=== PATIENT | female | born 1965 | race Hispanic/Latino ===

== ENCOUNTER 2017-05-31 22:47 | Emergency (ER) | payer BC, OTHER ==
[2017-06-01 00:44] LABS: BASOPHILS % (AUTO) 0.7 % (0.0-5.0); EOSINOPHILS % (AUTO) 0.6 % (0.0-8.0); HEMATOCRIT 36.6 % (36-48); LYMPHOCYTES % (AUTO) 15.2 % (21.0-51.0); MEAN CORPUSCULAR HEMOGLOBIN 30.5 pg (27.0-33.0); MEAN CORPUSCULAR VOLUME 89.6 fL (79-99); MONOCYTES % (AUTO) 4.1 % (3.0-13.0); NEUTROPHILS % (AUTO) 79.4 % (40.0-77.0); NUCLEATED RED BLOOD CELLS 0.1 % (0.0-0.19); PLATELET COUNT (AUTO) 148 K/uL (130-400); RED BLOOD CELL COUNT(AUTO) 4.08 MIL/uL (4.00-5.50); RED CELL DISTRIBUTION WIDTH 13.4 % (11.0-15.5); WHITE BLOOD COUNT (AUTO) 10.6 K/uL (4.8-10.8)
[2017-06-01 00:48] LABS: APPEARANCE,URINE Cloudy (CLEAR); BILIRUBIN,URINE Small (NEGATIVE); COLOR,URINE Dark Yellow (YELLOW); GLUCOSE, URINE (UA) Negative (NEGATIVE); KETONES,URINE Trace mg/dL (NEGATIVE); LEUKOCYTE ESTERASE ,URINE Trace (NEGATIVE); NITRATE,URINE Negative (NEGATIVE); OCCULT BLOOD,URINE Negative (NEGATIVE); PH,URINE 5.5 (5.0-8.0); PROTEIN,URINE POS 1+ (NEGATIVE)
[2017-06-01 00:53] LABS: CREATININE 0.6 mg/dL (0.5-1.5); POTASSIUM 4.1 mmol/L (3.5-5.1)
[2017-06-01 01:01] LABS: ALBUMIN 3.4 g/dL (3.5-5.0); TOTAL PROTEIN, SERUM 7.3 g/dL (6.0-8.3)
[2017-06-01 01:09] LABS: BACTERIA,URINE Few /HPF (None Seen); MUCUS,URINE Few LPF (None Seen); RBC,URINE 0-1 /HPF (0-1); SQUAMOUS EPITHELIAL CELL,UR Moderate /LPF (0-2)
[2017-06-01 01:10] LABS: HCG,QUAL RESULT NEGATIVE (NEGATIVE)
[2017-06-01] MEDS ORDERED: LIDOCAINE HCL 2% VISCOUS 15 ML UDCUP ONE (01:31)
[2017-06-01] MEDS ORDERED: MAG HYDROX/AL HYDROX/SIMETH ES 30 ML SUSP UDCUP ONE (01:31)
== END 2017-06-01 03:52 | disposition home or self-care (01) ==
LOC: EDH 22:47
DX: R10.13 Epigastric pain (principal); R11.2 Nausea with vomiting, unspecified; I10 Essential (primary) hypertension; E11.9 Type 2 diabetes mellitus without complications
CPT/HCPCS: 36415; 76705; 80053; 81001; 81025; 83690; 84484; 85025

== ENCOUNTER 2017-07-11 04:41 | Observation (INO) | payer OTHER ==
[~2017-07-11] VITALS: Ht 154.9 cm; Wt 88.8 kg
[2017-07-11] MEDS ORDERED: ONDANSETRON HCL 4 MG/2 ML VIAL ONE (04:44)
[2017-07-11] MEDS ORDERED: MORPHINE SULFATE 4 MG/1ML SYG ONE ×3 (04:44→05:50)
[2017-07-11 05:09] LABS: BASOPHILS % (AUTO) 0.3 % (0.0-5.0); EOSINOPHILS % (AUTO) 0.2 % (0.0-8.0); HEMATOCRIT 41.6 % (36-48); LYMPHOCYTES % (AUTO) 16.4 % (21.0-51.0); MEAN CORPUSCULAR HEMOGLOBIN 30.8 pg (27.0-33.0); MEAN CORPUSCULAR HGB CONC 34.5 g/dL (32.0-36.0); MEAN CORPUSCULAR VOLUME 89.2 fL (79-99); MONOCYTES % (AUTO) 4.7 % (3.0-13.0); NEUTROPHILS % (AUTO) 78.4 % (40.0-77.0); PLATELET COUNT (AUTO) 263 K/uL (130-400); RED BLOOD CELL COUNT(AUTO) 4.66 MIL/uL (4.00-5.50); RED CELL DISTRIBUTION WIDTH 13.3 % (11.0-15.5); WHITE BLOOD COUNT (AUTO) 11.4 K/uL (4.8-10.8)
[2017-07-11 05:18] LABS: CREATININE 0.7 mg/dL (0.5-1.5); POTASSIUM 3.4 mmol/L (3.5-5.1)
[2017-07-11 05:22] LABS: ALBUMIN 3.5 g/dL (3.5-5.0); BILIRUBIN,TOTAL 0.9 mg/dL (0.2-1.0); TOTAL PROTEIN, SERUM 7.7 g/dL (6.0-8.3)
[2017-07-11] MEDS ORDERED: FAMOTIDINE/PF 20 MG/2 ML VIAL IV ONE (05:52)
[2017-07-11] MEDS ORDERED: IOPAMIDOL-370 75 ML VIAL IV ONE (05:59)
[2017-07-11] MEDS ORDERED: LEVOFLOXACIN 750 MG/D5W 150 ML 150 ML ONE (07:15)
[2017-07-11] MEDS ORDERED: SODIUM CHLORIDE 0.9% 1000ML 1,000 ML IV ONE (07:16)
[2017-07-11 08:12] VITALS: BP 141/82
[2017-07-11] MEDS ORDERED: MAG HYDROX/AL HYDROX/SIMETH ES 30 ML SUSP UDCUP PO PRN (08:15)
[2017-07-11] MEDS ORDERED: ACETAMINOPHEN-CODEINE 300/30MG TAB PO PRN ×2 (08:15)
[2017-07-11] MEDS ORDERED: NITROGLYCERIN 0.4 MG SL TAB SL PRN (08:15)
[2017-07-11] MEDS ORDERED: ACETAMINOPHEN 325 MG TAB PO PRN ×2 (08:15)
[2017-07-11] MEDS ORDERED: MORPHINE SULFATE 2 MG/ML 1ML SYG IV PRN (08:15)
[2017-07-11] MEDS ORDERED: LEVOFLOXACIN 500 MG/D5W 100 ML 100 ML IV SCH (08:15)
[2017-07-11] MEDS ORDERED: LACTULOSE 20 GM/30 ML UDCUP PO PRN (08:15)
[2017-07-11] MEDS ORDERED: HYDRALAZINE HCL 20 MG/ML VIAL IV PRN (08:15)
[2017-07-11] MEDS ORDERED: GUAIFENESIN-DM 200/20 MG 10 ML PO PRN (08:15)
[2017-07-11] MEDS ORDERED: MORPHINE SULFATE 4 MG/1ML SYG IV PRN (08:15)
[2017-07-11] MEDS: FAMOTIDINE/PF 20 MG/2 ML VIAL IV SCH ×2 (08:36→21:38)
[2017-07-11] MEDS ORDERED: DICY10CA13 PO (08:49)
[2017-07-11] MEDS ORDERED: METF850T2 PO (08:49)
[2017-07-11] MEDS ORDERED: ONDA4TAB9 PO (08:49)
[2017-07-11] MEDS ORDERED: LOSA50TA37 PO (08:49)
[2017-07-11] MEDS ORDERED: POTASSIUM CHLORIDE 20MEQ/100ML 100 ML IV PRN (09:00)
[2017-07-11] MEDS ORDERED: POTASSIUM CHLORIDE 10% ELIXIR 20 MEQ/15 ML UDCUP PO PRN (09:00)
[2017-07-11] MEDS ORDERED: POTASSIUM CHLORIDE 20 MEQ ERTAB PO PRN (09:00)
[2017-07-11] MEDS ORDERED: LIDOCAINE HCL-MPF 1% 2ML VIAL IVP PRN (09:00)
[2017-07-11] MEDS: DICYCLOMINE HCL 20 MG TAB PO SCH ×4 (09:56→21:39)
[2017-07-11] MEDS: SIMETHICONE 80 MG TAB.CHEW PO SCH ×4 (09:57→21:39)
[2017-07-11] MEDS: SODIUM CHLORIDE 0.9% 1000ML 1,000 ML IV SCH ×2 (10:02→22:27)
[2017-07-11 11:12] VITALS: BP 137/79
[2017-07-11] MEDS: METOCLOPRAMIDE 10 MG/2 ML VIAL IVP SCH ×2 (11:30→17:00)
[2017-07-11] MEDS: INSULIN HUMULIN R 100 UNIT/ML 3ML SQ SCH ×3 (11:30→21:00)
[2017-07-11] MEDS: METRONIDAZOLE 500MG/100ML BAG 100 ML IV SCH ×3 (13:03→23:42)
[2017-07-11] MEDS: ONDANSETRON HCL 4 MG/2 ML VIAL IV PRN (13:03)
[2017-07-11] MEDS: KETOROLAC TROMETHAMINE 15MG/ML IV PRN (13:12)
[2017-07-11 16:03] VITALS: BP 117/77
[2017-07-11 20:00] VITALS: BP 103/64
[2017-07-11] MEDS: ENOXAPARIN SODIUM 40 MG/0.4 ML SYRINGE SQ SCH (21:43)
[2017-07-12] VITALS (7 sets, daily range): BP systolic 108–128; BP diastolic 65–89
[2017-07-12 03:44] LABS: HEMATOCRIT 35.3 % (36-48); MEAN CORPUSCULAR HEMOGLOBIN 31.8 pg (27.0-33.0); MEAN CORPUSCULAR HGB CONC 35.4 g/dL (32.0-36.0); MEAN CORPUSCULAR VOLUME 89.7 fL (79-99); PLATELET COUNT (AUTO) 203 K/uL (130-400); RED BLOOD CELL COUNT(AUTO) 3.93 MIL/uL (4.00-5.50); RED CELL DISTRIBUTION WIDTH 13.2 % (11.0-15.5); WHITE BLOOD COUNT (AUTO) 8.1 K/uL (4.8-10.8)
[2017-07-12 03:57] LABS: ALBUMIN 2.8 g/dL (3.5-5.0); BILIRUBIN,TOTAL 1.2 mg/dL (0.2-1.0); CREATININE 0.7 mg/dL (0.5-1.5); POTASSIUM 3.5 mmol/L (3.5-5.1); TOTAL PROTEIN, SERUM 6.3 g/dL (6.0-8.3)
[2017-07-12] MEDS: INSULIN HUMULIN R 100 UNIT/ML 3ML SQ SCH ×4 (07:30→21:00)
[2017-07-12] MEDS: METOCLOPRAMIDE 10 MG/2 ML VIAL IVP SCH ×3 (07:30→16:41)
[2017-07-12] MEDS: METRONIDAZOLE 500MG/100ML BAG 100 ML IV SCH ×2 (08:55→16:44)
[2017-07-12] MEDS: FAMOTIDINE/PF 20 MG/2 ML VIAL IV SCH ×2 (08:55→08:56)
[2017-07-12] MEDS: KETOROLAC TROMETHAMINE 15MG/ML IV PRN (08:56)
[2017-07-12] MEDS: SIMETHICONE 80 MG TAB.CHEW PO SCH ×4 (09:00→20:58)
[2017-07-12] MEDS: ENOXAPARIN SODIUM 40 MG/0.4 ML SYRINGE SQ SCH (09:00)
[2017-07-12] MEDS: DICYCLOMINE HCL 20 MG TAB PO SCH ×4 (09:00→20:58)
[2017-07-12] MEDS: SODIUM CHLORIDE 0.9% 1000ML 1,000 ML IV SCH ×2 (13:04→22:05)
[2017-07-12] MEDS: ONDANSETRON HCL 4 MG/2 ML VIAL IV PRN (17:09)
[2017-07-13] MEDS: METRONIDAZOLE 500MG/100ML BAG 100 ML IV SCH ×2 (01:00→08:47)
[2017-07-13 04:08] VITALS: BP 111/65
[2017-07-13] MEDS: METOCLOPRAMIDE 10 MG/2 ML VIAL IVP SCH ×2 (06:10→11:19)
[2017-07-13] MEDS: INSULIN HUMULIN R 100 UNIT/ML 3ML SQ SCH ×2 (06:14→11:29)
[2017-07-13 07:48] VITALS: BP 116/69
[2017-07-13] MEDS: FAMOTIDINE/PF 20 MG/2 ML VIAL IV SCH (08:47)
[2017-07-13] MEDS: SIMETHICONE 80 MG TAB.CHEW PO SCH (08:47)
[2017-07-13] MEDS: ONDANSETRON HCL 4 MG/2 ML VIAL IV PRN (08:47)
[2017-07-13] MEDS: DICYCLOMINE HCL 20 MG TAB PO SCH (08:49)
[2017-07-13] MEDS ORDERED: LEVOFLOXACIN 500 MG/D5W 100 ML 100 ML IV SCH (09:00)
[2017-07-13] MEDS: ENOXAPARIN SODIUM 40 MG/0.4 ML SYRINGE SQ SCH (09:00)
[2017-07-13 11:30] VITALS: BP 108/74
== END 2017-07-13 12:50 | disposition home or self-care (01) ==
LOC: EDH 04:41 → EDHIP 07:12 → 3AH 07:56
PROVIDERS: ADMIT Internal Medicine; ATTEND Internal Medicine
DX: K57.32 Diverticulitis of large intestine without perforation or abscess without bleeding (principal); R10.30 Lower abdominal pain, unspecified; E11.9 Type 2 diabetes mellitus without complications; E78.5 Hyperlipidemia, unspecified; I10 Essential (primary) hypertension; K59.00 Constipation, unspecified; E66.01 Morbid (severe) obesity due to excess calories
CPT/HCPCS: 36415 ×3; 74177; 80053 ×2; 82150; 82550; 82948 ×10; 83690; 84132; 84484; 84703; 85025; 85027; 87507; 93005; 96361 ×3; 96365; 96366 ×2; 96372; 96375 ×2; 96376 ×2; 99285; G0378 ×54; J1650; J1885 ×2; J1956 ×2; J2270 ×3; J2405 ×4; J3480; J3490 ×12; J7030 ×3; Q9967

== ENCOUNTER 2017-08-26 16:15 | Inpatient (IN) | payer OTHER ==
[~2017-08-26] VITALS: Ht 154.9 cm; Wt 88.9 kg
[~2017-08-26 16:15] MED LIST: DICY10CA13 PO; LOSA50TA37 PO; METF850T2 PO; ONDA4TAB9 PO
[2017-08-26 16:55] LABS: BASOPHILS % (AUTO) 0.6 % (0.0-5.0); EOSINOPHILS % (AUTO) 1.1 % (0.0-8.0); HEMATOCRIT 40.6 % (36-48); LYMPHOCYTES % (AUTO) 26.7 % (21.0-51.0); MEAN CORPUSCULAR HEMOGLOBIN 30.7 pg (27.0-33.0); MEAN CORPUSCULAR HGB CONC 34.4 g/dL (32.0-36.0); MEAN CORPUSCULAR VOLUME 89.3 fL (79-99); MONOCYTES % (AUTO) 6.2 % (3.0-13.0); NEUTROPHILS % (AUTO) 65.4 % (40.0-77.0); PLATELET COUNT (AUTO) 284 K/uL (130-400); RED BLOOD CELL COUNT(AUTO) 4.55 MIL/uL (4.00-5.50); RED CELL DISTRIBUTION WIDTH 13.1 % (11.0-15.5); WHITE BLOOD COUNT (AUTO) 8.2 K/uL (4.8-10.8)
[2017-08-26 17:02] VITALS: BP 118/74
[2017-08-26 17:09] LABS: ALBUMIN 3.8 g/dL (3.5-5.0); BILIRUBIN,TOTAL 0.8 mg/dL (0.2-1.0); CREATININE 0.7 mg/dL (0.5-1.5); POTASSIUM 3.8 mmol/L (3.5-5.1)
[2017-08-27] MEDS ORDERED: DOCU100T PO (09:20)
[2017-08-27] MEDS ORDERED: MIRALAX PO (09:20)
[2017-08-28] MEDS ORDERED: CEFOXITIN SODIUM 2 GM VIAL IVP SCH (06:45)
[2017-08-29] MEDS: SODIUM CHLORIDE 0.9% 1000ML 1,000 ML IV SCH (12:45)
[2017-09-01 17:03] LABS: INR 0.92 (0.85-1.15); PARTIAL THROMBOPLASTIN TIME 25.3 SEC (26.3-35.5); PROTHROMBIN TIME 9.7 SEC (9.6-11.6)
[2017-09-03] VITALS (29 sets, daily range): BP systolic 111–137; BP diastolic 51–87
[2017-09-03] MEDS: SODIUM CHLORIDE 0.9% 1000ML 1,000 ML IV SCH ×3 (10:48→17:34)
[2017-09-03] MEDS: CEFOXITIN SODIUM 2 GM VIAL ONE ×2 (10:48→11:15)
[2017-09-03] MEDS ORDERED: MIDAZOLAM HCL 1 MG/ML 2ML VIAL ONE (11:30)
[2017-09-03] MEDS ORDERED: FENTANYL CITRATE PF 50 MCG/1 ML 2ML VIAL ONE ×4 (11:32→15:47)
[2017-09-03] MEDS ORDERED: PROPOFOL 10 MG/ML 20ML VIAL IV ONE (11:32)
[2017-09-03] MEDS ORDERED: EPHEDRINE SULFATE 50 MG/ML AMPULE ONE (11:55)
[2017-09-03] MEDS ORDERED: BUPIVACAINE/PF 0.5% 30ML VIAL ONE (11:59)
[2017-09-03] MEDS ORDERED: NEOSTIGMINE METHYLSULFATE 1MG/ML IV ONE ×2 (12:50→13:51)
[2017-09-03] MEDS ORDERED: ROCURONIUM BROMIDE 10MG/1ML 5ML VL ONE (12:50)
[2017-09-03] MEDS ORDERED: LIDOCAINE PF 2% 5ML ABBOJECT ONE (12:50)
[2017-09-03] MEDS ORDERED: GLYCOPYRROLATE 0.2 MG/ML 5 ML VIAL ONE ×2 (12:50→13:51)
[2017-09-03] MEDS ORDERED: FENTANYL CITRATE PF 50 MCG/1 ML 5ML AMP IV ONE (13:06)
[2017-09-03] MEDS ORDERED: ONDANSETRON HCL MDV 20ML 2 MG/ML VIAL IVP PRN (14:15)
[2017-09-03] MEDS ORDERED: ACETAMINOPHEN-CODEINE 300/30MG TAB PO PRN (14:15)
[2017-09-03] MEDS ORDERED: KETOROLAC TROMETHAMINE 30MG/ML IM PRN (14:15)
[2017-09-03] MEDS ORDERED: MEPERIDINE-PF 25 MG/ML SYG ONE ×2 (14:34→14:43)
[2017-09-03] MEDS ORDERED: ROPIVACAINE 0.5% 5MG/ML 30ML IJ ONE (14:40)
[2017-09-03] MEDS ORDERED: DEXAMETHASONE SOD PHOSPHATE 10MG/ML 1ML VIAL ONE (14:47)
[2017-09-03] MEDS ORDERED: NALOXONE HCL 0.4 MG/1 ML ML IVP PRN (15:45)
[2017-09-03] MEDS ORDERED: CEFOXITIN SODIUM 1 GM VIAL ONE (16:58)
[2017-09-03] MEDS: LACTATED RINGERS 1000ML 1,000 ML IV SCH (17:18)
[2017-09-03] MEDS: CEFOXITIN SODIUM 1 GM VIAL IVP SCH (17:32)
[2017-09-03] MEDS ORDERED: CEFOXITIN 1GM+NS 100ML 100 ML IV SCH (18:00)
[2017-09-03] MEDS: INSULIN HUMULIN R 100 UNIT/ML 3ML SQ PRN (21:17)
[2017-09-04] MEDS: CEFOXITIN SODIUM 1 GM VIAL IVP SCH (01:03)
[2017-09-04 03:45] VITALS: BP 123/67
[2017-09-04 03:49] LABS: BASOPHILS % (AUTO) 0.1 % (0.0-5.0); HEMATOCRIT 36.3 % (36-48); LYMPHOCYTES % (AUTO) 3.5 % (21.0-51.0); MEAN CORPUSCULAR HEMOGLOBIN 31.5 pg (27.0-33.0); MEAN CORPUSCULAR HGB CONC 35.5 g/dL (32.0-36.0); MEAN CORPUSCULAR VOLUME 88.8 fL (79-99); MONOCYTES % (AUTO) 5.2 % (3.0-13.0); NEUTROPHILS % (AUTO) 91.2 % (40.0-77.0); PLATELET COUNT (AUTO) 214 K/uL (130-400); RED BLOOD CELL COUNT(AUTO) 4.09 MIL/uL (4.00-5.50); RED CELL DISTRIBUTION WIDTH 13.3 % (11.0-15.5); WHITE BLOOD COUNT (AUTO) 13.4 K/uL (4.8-10.8)
[2017-09-04 03:55] LABS: CREATININE 0.8 mg/dL (0.5-1.5); POTASSIUM 4.1 mmol/L (3.5-5.1)
[2017-09-04] MEDS: LACTATED RINGERS 1000ML 1,000 ML IV SCH ×2 (04:10→16:30)
[2017-09-04] MEDS: INSULIN HUMULIN R 100 UNIT/ML 3ML SQ PRN (06:18)
[2017-09-04 08:00] VITALS: BP 129/88
[2017-09-04] MEDS: SODIUM CHLORIDE 0.9% 1000ML 1,000 ML IV SCH (08:45)
[2017-09-04] MEDS: PANTOPRAZOLE SODIUM 40 MG TABLET.DR PO SCH (10:12)
[2017-09-04 12:00] VITALS: BP 116/77
[2017-09-04 16:00] VITALS: BP 130/77
[2017-09-04] MEDS: MEPERIDINE 10MG/ML 50ML PCA 50 ML IV SCH (16:29)
[2017-09-04 19:55] VITALS: BP 104/68
[2017-09-04] MEDS: DOCUSATE SODIUM 100 MG CAP PO SCH (20:41)
[2017-09-04 23:37] VITALS: BP 109/66
[2017-09-05 03:45] VITALS: BP 117/72
[2017-09-05 03:59] LABS: BASOPHILS % (AUTO) 0.2 % (0.0-5.0); EOSINOPHILS % (AUTO) 0.1 % (0.0-8.0); HEMATOCRIT 32.7 % (36-48); LYMPHOCYTES % (AUTO) 12.9 % (21.0-51.0); MEAN CORPUSCULAR HEMOGLOBIN 30.8 pg (27.0-33.0); MEAN CORPUSCULAR HGB CONC 34.6 g/dL (32.0-36.0); MEAN CORPUSCULAR VOLUME 88.9 fL (79-99); MONOCYTES % (AUTO) 5.8 % (3.0-13.0); PLATELET COUNT (AUTO) 207 K/uL (130-400); RED BLOOD CELL COUNT(AUTO) 3.68 MIL/uL (4.00-5.50); RED CELL DISTRIBUTION WIDTH 13.2 % (11.0-15.5); WHITE BLOOD COUNT (AUTO) 12.5 K/uL (4.8-10.8)
[2017-09-05 04:06] LABS: CREATININE 0.7 mg/dL (0.5-1.5)
[2017-09-05] MEDS: LACTATED RINGERS 1000ML 1,000 ML IV SCH ×2 (04:46→19:03)
[2017-09-05 08:00] VITALS: BP 122/79
[2017-09-05] MEDS ORDERED: ENOXAPARIN SODIUM 30 MG/0.3 ML SQ SCH (09:00)
[2017-09-05] MEDS: PANTOPRAZOLE SODIUM 40 MG TABLET.DR PO SCH (09:21)
[2017-09-05] MEDS: LOSARTAN 50 MG TABLET PO SCH (09:21)
[2017-09-05] MEDS: ENOXAPARIN SODIUM 40 MG/0.4 ML SYRINGE SQ SCH (09:22)
[2017-09-05] MEDS: METFORMIN HCL 850 MG TABLET PO SCH ×2 (09:23→17:00)
[2017-09-05] MEDS: MEPERIDINE 10MG/ML 50ML PCA 50 ML IV SCH (11:31)
[2017-09-05 12:00] VITALS: BP 138/79
[2017-09-05 16:00] VITALS: BP 148/87
[2017-09-05 19:35] VITALS: BP 114/73
[2017-09-05] MEDS: DOCUSATE SODIUM 100 MG CAP PO SCH (21:37)
[2017-09-05 23:10] VITALS: BP 121/65
[2017-09-06 04:00] VITALS: BP 135/76
[2017-09-06 04:07] LABS: BASOPHILS % (AUTO) 0.2 % (0.0-5.0); EOSINOPHILS % (AUTO) 0.6 % (0.0-8.0); HEMATOCRIT 30.2 % (36-48); LYMPHOCYTES % (AUTO) 12.4 % (21.0-51.0); MEAN CORPUSCULAR HEMOGLOBIN 32.3 pg (27.0-33.0); MEAN CORPUSCULAR HGB CONC 36.3 g/dL (32.0-36.0); MONOCYTES % (AUTO) 5.5 % (3.0-13.0); NEUTROPHILS % (AUTO) 81.3 % (40.0-77.0); PLATELET COUNT (AUTO) 201 K/uL (130-400); RED BLOOD CELL COUNT(AUTO) 3.39 MIL/uL (4.00-5.50); RED CELL DISTRIBUTION WIDTH 13.1 % (11.0-15.5); WHITE BLOOD COUNT (AUTO) 10.2 K/uL (4.8-10.8)
[2017-09-06 04:12] LABS: CREATININE 0.6 mg/dL (0.5-1.5); POTASSIUM 3.5 mmol/L (3.5-5.1)
[2017-09-06] MEDS: LACTATED RINGERS 1000ML 1,000 ML IV SCH ×2 (04:42→20:29)
[2017-09-06] MEDS: INSULIN HUMULIN R 100 UNIT/ML 3ML SQ PRN ×3 (06:23→20:37)
[2017-09-06 08:00] VITALS: BP 143/75
[2017-09-06] MEDS: PANTOPRAZOLE SODIUM 40 MG TABLET.DR PO SCH (09:53)
[2017-09-06] MEDS: LOSARTAN 50 MG TABLET PO SCH (09:53)
[2017-09-06] MEDS: METFORMIN HCL 850 MG TABLET PO SCH ×2 (09:53→16:36)
[2017-09-06] MEDS: ENOXAPARIN SODIUM 40 MG/0.4 ML SYRINGE SQ SCH (09:54)
[2017-09-06 12:00] VITALS: BP 132/71
[2017-09-06 16:00] VITALS: BP 125/69
[2017-09-06 20:04] VITALS: BP 115/69
[2017-09-06] MEDS: DOCUSATE SODIUM 100 MG CAP PO SCH (20:28)
[2017-09-06] MEDS: MEPERIDINE 10MG/ML 50ML PCA 50 ML IV SCH (20:31)
[2017-09-06 23:47] VITALS: BP 117/64
[2017-09-07 04:00] VITALS: BP 117/73
[2017-09-07] MEDS: INSULIN HUMULIN R 100 UNIT/ML 3ML SQ PRN (05:50)
[2017-09-07 08:00] VITALS: BP 131/75
[2017-09-07] MEDS: METFORMIN HCL 850 MG TABLET PO SCH ×2 (09:02→16:44)
[2017-09-07] MEDS: LOSARTAN 50 MG TABLET PO SCH (09:02)
[2017-09-07] MEDS: PANTOPRAZOLE SODIUM 40 MG TABLET.DR PO SCH (09:05)
[2017-09-07] MEDS: ENOXAPARIN SODIUM 40 MG/0.4 ML SYRINGE SQ SCH (09:05)
[2017-09-07] MEDS: LACTATED RINGERS 1000ML 1,000 ML IV SCH ×2 (11:47→20:46)
[2017-09-07] MEDS: KETOROLAC TROMETHAMINE 30MG/ML IV SCH ×2 (11:48→17:19)
[2017-09-07 12:00] VITALS: BP 128/79
[2017-09-07] MEDS: ACETAMINOPHEN-CODEINE 300/30MG TAB PO PRN ×2 (12:31→17:19)
[2017-09-07 16:00] VITALS: BP 123/75
[2017-09-07 19:48] VITALS: BP 101/68
[2017-09-07] MEDS: DOCUSATE SODIUM 100 MG CAP PO SCH (20:45)
[2017-09-07 23:32] VITALS: BP 110/58
[2017-09-08 04:16] VITALS: BP 119/71
[2017-09-08] MEDS: KETOROLAC TROMETHAMINE 30MG/ML IV SCH ×5 (05:46→23:31)
[2017-09-08 08:00] VITALS: BP 137/76
[2017-09-08] MEDS: METFORMIN HCL 850 MG TABLET PO SCH ×2 (08:01→16:08)
[2017-09-08] MEDS: PANTOPRAZOLE SODIUM 40 MG TABLET.DR PO SCH (08:01)
[2017-09-08] MEDS: LOSARTAN 50 MG TABLET PO SCH (08:01)
[2017-09-08] MEDS: ENOXAPARIN SODIUM 40 MG/0.4 ML SYRINGE SQ SCH (08:02)
[2017-09-08] MEDS: ACETAMINOPHEN-CODEINE 300/30MG TAB PO PRN ×2 (08:05→16:08)
[2017-09-08 11:00] VITALS: BP 125/61
[2017-09-08] MEDS: LACTATED RINGERS 1000ML 1,000 ML IV SCH ×2 (14:28→23:35)
[2017-09-08 16:00] VITALS: BP 125/71
[2017-09-08] MEDS: SIMETHICONE 80 MG TAB.CHEW PO SCH ×2 (18:02→20:50)
[2017-09-08 20:00] VITALS: BP 132/83
[2017-09-08] MEDS: DOCUSATE SODIUM 100 MG CAP PO SCH (20:50)
[2017-09-08 23:56] VITALS: BP 128/72
[2017-09-09 03:53] VITALS: BP 132/78
[2017-09-09] MEDS: KETOROLAC TROMETHAMINE 30MG/ML IV SCH ×2 (06:00→11:31)
[2017-09-09] MEDS: ACETAMINOPHEN-CODEINE 300/30MG TAB PO PRN ×2 (06:08→21:08)
[2017-09-09 07:56] VITALS: BP 121/73
[2017-09-09] MEDS: ENOXAPARIN SODIUM 40 MG/0.4 ML SYRINGE SQ SCH (09:12)
[2017-09-09] MEDS: PANTOPRAZOLE SODIUM 40 MG TABLET.DR PO SCH (09:12)
[2017-09-09] MEDS: METFORMIN HCL 850 MG TABLET PO SCH ×2 (09:12→17:37)
[2017-09-09] MEDS: LOSARTAN 50 MG TABLET PO SCH (09:12)
[2017-09-09] MEDS: SIMETHICONE 80 MG TAB.CHEW PO SCH ×4 (09:12→21:08)
[2017-09-09 11:39] VITALS: BP 129/76
[2017-09-09] MEDS ORDERED: TRAMADOL HCL 50 MG TABLET PO PRN (16:30)
[2017-09-09 16:44] VITALS: BP 126/76
[2017-09-09] MEDS: LACTATED RINGERS 1000ML 1,000 ML IV SCH (17:37)
[2017-09-09 20:00] VITALS: BP 111/66
[2017-09-09] MEDS: DOCUSATE SODIUM 100 MG CAP PO SCH (21:08)
[2017-09-09 23:46] VITALS: BP 121/66
[2017-09-10] MEDS: LACTATED RINGERS 1000ML 1,000 ML IV SCH (03:57)
[2017-09-10 04:00] VITALS: BP 141/86
[2017-09-10 07:52] VITALS: BP 136/92
[2017-09-10] MEDS: METFORMIN HCL 850 MG TABLET PO SCH (10:20)
[2017-09-10] MEDS: PANTOPRAZOLE SODIUM 40 MG TABLET.DR PO SCH (10:20)
[2017-09-10] MEDS: SIMETHICONE 80 MG TAB.CHEW PO SCH ×2 (10:20→13:17)
[2017-09-10] MEDS: LOSARTAN 50 MG TABLET PO SCH (10:20)
[2017-09-10] MEDS: ENOXAPARIN SODIUM 40 MG/0.4 ML SYRINGE SQ SCH (10:23)
[2017-09-10 11:11] VITALS: BP 131/80
== END 2017-09-10 17:00 | disposition home or self-care (01) | DRG 331 ==
LOC: EDSTATUS 16:15 → DAHIP 09-03 09:07 → 3BH 09-03 15:16
PROVIDERS: ADMIT Student in an Organized Health Care Education/Training Program; ATTEND Student in an Organized Health Care Education/Training Program
PROC: 0DTN0ZZ Resection of Sigmoid Colon, Open Approach (ICD-10-PCS; principal; 2017-09-05)
PROC: 0DJD4ZZ Inspection of Lower Intestinal Tract, Percutaneous Endoscopic Approach (ICD-10-PCS; 2017-09-05)
DX: K57.32 Diverticulitis of large intestine without perforation or abscess without bleeding (principal); K66.8 Other specified disorders of peritoneum; K66.0 Peritoneal adhesions (postprocedural) (postinfection); Z53.31 Laparoscopic surgical procedure converted to open procedure; E11.9 Type 2 diabetes mellitus without complications; I10 Essential (primary) hypertension; K57.90 Diverticulosis of intestine, part unspecified, without perforation or abscess without bleeding; Z83.3 Family history of diabetes mellitus; Z80.9 Family history of malignant neoplasm, unspecified
CPT/HCPCS: 36415; 74018; 80048; 80053; 82948; 84703; 85025; 85610; 85730; 88307; A4218; A4344; A4606; J0694; J1100; J1650; J1815; J1885; J2001; J2175; J2250; J2704; J2710; J2795; J3010; J3490; J7030; J7120

== ENCOUNTER 2017-09-14 16:44 | Inpatient (IN) | payer OTHER ==
[~2017-09-14 16:44] MED LIST changes: +MIRALAX PO
[2017-09-14 17:17] LABS: BASOPHILS % (AUTO) 0.4 % (0.0-5.0); EOSINOPHILS % (AUTO) 0.5 % (0.0-8.0); HEMATOCRIT 37.5 % (36-48); MEAN CORPUSCULAR HGB CONC 34.1 g/dL (32.0-36.0); MONOCYTES % (AUTO) 6.2 % (3.0-13.0); NEUTROPHILS % (AUTO) 80.9 % (40.0-77.0); PLATELET COUNT (AUTO) 387 K/uL (130-400); RED BLOOD CELL COUNT(AUTO) 4.27 MIL/uL (4.00-5.50); RED CELL DISTRIBUTION WIDTH 13.2 % (11.0-15.5); WHITE BLOOD COUNT (AUTO) 12.6 K/uL (4.8-10.8)
[2017-09-14 17:28] LABS: CREATININE 0.7 mg/dL (0.5-1.5); POTASSIUM 3.7 mmol/L (3.5-5.1)
[2017-09-14 17:32] LABS: ALBUMIN 2.9 g/dL (3.5-5.0); BILIRUBIN,TOTAL 0.4 mg/dL (0.2-1.0)
[2017-09-14] MEDS ORDERED: ONDANSETRON HCL MDV 20ML 2 MG/ML VIAL ONE (19:13)
[2017-09-14] MEDS ORDERED: SODIUM CHLORIDE 0.9% 1000ML 1,000 ML IV ONE (19:14)
[2017-09-14] MEDS ORDERED: MORPHINE SULFATE 4 MG/1ML SYG ONE ×2 (19:15→23:03)
[2017-09-14] MEDS ORDERED: IOPAMIDOL-370 75 ML VIAL IV ONE (20:05)
[2017-09-14 20:06] LABS: APPEARANCE,URINE CLOUDY (CLEAR); BILIRUBIN,URINE NEGATIVE (NEGATIVE); COLOR,URINE YELLOW (YELLOW); GLUCOSE, URINE (UA) NEGATIVE (NEGATIVE); KETONES,URINE NEGATIVE (NEGATIVE); LEUKOCYTE ESTERASE ,URINE MODERATE (NEGATIVE); NITRATE,URINE POSITIVE (NEGATIVE); OCCULT BLOOD,URINE TRACE-INTACT (NEGATIVE); PH,URINE 6.5 (5.0-8.0); PROTEIN,URINE TRACE (NEGATIVE)
[2017-09-14 20:37] LABS: BACTERIA,URINE Moderate /HPF (None Seen); MUCUS,URINE Few LPF (None Seen); SQUAMOUS EPITHELIAL CELL,UR Few /HPF (0-2); WBC,URINE 26-50 /HPF (0-1)
[2017-09-14] MEDS ORDERED: VANCOMYCIN 1GM+NS 250ML 250 ML IV ONE (23:02)
[2017-09-14] MEDS ORDERED: ZOSYN 3.375GM+NS 50ML 50 ML IV ONE (23:02)
[2017-09-15] MEDS ORDERED: MORPHINE SULFATE 4 MG/1ML SYG ONE ×2 (04:35→10:31)
[2017-09-15] MEDS ORDERED: KETOROLAC TROMETHAMINE 30MG/ML ONE ×2 (04:35→10:25)
[2017-09-15 06:59] LABS: BASOPHILS % (AUTO) 0.4 % (0.0-5.0); EOSINOPHILS % (AUTO) 0.6 % (0.0-8.0); HEMATOCRIT 31.2 % (36-48); LYMPHOCYTES % (AUTO) 16.8 % (21.0-51.0); MEAN CORPUSCULAR HEMOGLOBIN 31.4 pg (27.0-33.0); MEAN CORPUSCULAR HGB CONC 35.2 g/dL (32.0-36.0); MEAN CORPUSCULAR VOLUME 89.4 fL (79-99); MONOCYTES % (AUTO) 6.7 % (3.0-13.0); NEUTROPHILS % (AUTO) 75.5 % (40.0-77.0); PLATELET COUNT (AUTO) 314 K/uL (130-400); RED BLOOD CELL COUNT(AUTO) 3.49 MIL/uL (4.00-5.50); RED CELL DISTRIBUTION WIDTH 13.1 % (11.0-15.5); WHITE BLOOD COUNT (AUTO) 10.2 K/uL (4.8-10.8)
[2017-09-15 07:12] LABS: CREATININE 0.7 mg/dL (0.5-1.5); POTASSIUM 3.7 mmol/L (3.5-5.1)
[2017-09-15 07:18] LABS: ALBUMIN 2.5 g/dL (3.5-5.0); BILIRUBIN,TOTAL 0.5 mg/dL (0.2-1.0); TOTAL PROTEIN, SERUM 6.9 g/dL (6.0-8.3)
[2017-09-15] MEDS ORDERED: ZOSYN 3.375GM+NS 50ML 50 ML IV ONE (08:11)
[2017-09-15] MEDS ORDERED: DOCUSATE SODIUM 100 MG CAP PO ONE (11:20)
[2017-09-15 13:55] VITALS: BP 115/73
[2017-09-15] MEDS ORDERED: TRAM50TA4 PO (14:17)
[2017-09-15] MEDS ORDERED: DOCU-116 PO (14:17)
[2017-09-15] MEDS ORDERED: TYL3 PO (14:17)
[2017-09-15] MEDS ORDERED: KETOROLAC TROMETHAMINE 30MG/ML IV PRN (15:30)
[2017-09-15 16:00] VITALS: BP 125/77
[2017-09-15] MEDS: ZOSYN 3.375GM+NS 50ML 50 ML IV SCH ×2 (16:59→23:48)
[2017-09-15 19:22] VITALS: BP 111/68
[2017-09-15 23:32] VITALS: BP 121/70
[2017-09-15] MEDS: MORPHINE SULFATE 4 MG/1ML SYG IVP PRN (23:47)
[2017-09-16] VITALS (7 sets, daily range): BP systolic 119–140; BP diastolic 67–77
[2017-09-16] MEDS: ZOSYN 3.375GM+NS 50ML 50 ML IV SCH (07:17)
[2017-09-16] MEDS: MORPHINE SULFATE 4 MG/1ML SYG IVP PRN ×3 (07:18→18:32)
[2017-09-16] MEDS: DOCUSATE SODIUM 100 MG CAP PO SCH ×2 (08:22→20:32)
[2017-09-16] MEDS: CADEXOMER IODINE 40 GM GEL TP SCH (08:27)
[2017-09-16] MEDS ORDERED: ONDANSETRON HCL MDV 20ML 2 MG/ML VIAL IV PRN (15:30)
[2017-09-16] MEDS ORDERED: POTASSIUM CHLORIDE 20MEQ/100ML 100 ML IV PRN ×2 (15:30)
[2017-09-16] MEDS ORDERED: POTASSIUM CHLORIDE 20 MEQ ERTAB PO PRN (15:30)
[2017-09-16] MEDS ORDERED: GUAIFENESIN-DM 200/20 MG 10 ML PO PRN (15:30)
[2017-09-16] MEDS ORDERED: POTASSIUM CHLORIDE 10% ELIXIR 20 MEQ/15 ML UDCUP PO PRN ×2 (15:30)
[2017-09-16] MEDS ORDERED: MEROPENEM 500MG+NS 50ML 50 ML IV SCH (15:30)
[2017-09-16] MEDS ORDERED: LACTULOSE 20 GM/30 ML UDCUP PO PRN (15:30)
[2017-09-16] MEDS ORDERED: HYDRALAZINE HCL 20 MG/ML VIAL IV PRN ×2 (15:30→15:45)
[2017-09-16] MEDS ORDERED: MAG HYDROX/AL HYDROX/SIMETH ES 30 ML SUSP UDCUP PO PRN (15:30)
[2017-09-16] MEDS ORDERED: ACETAMINOPHEN 325 MG TAB PO PRN ×2 (15:30)
[2017-09-16] MEDS ORDERED: NITROGLYCERIN 0.4 MG SL TAB SL PRN (15:30)
[2017-09-16] MEDS ORDERED: LIDOCAINE HCL-MPF 1% 2ML VIAL IVP PRN ×2 (15:30)
[2017-09-16] MEDS ORDERED: ACETAMINOPHEN-CODEINE 300/30MG TAB PO PRN (15:45)
[2017-09-16] MEDS ORDERED: MORPHINE SULFATE 4 MG/1ML SYG IVP PRN (15:45)
[2017-09-16] MEDS: METFORMIN HCL 850 MG TABLET PO SCH (16:27)
[2017-09-16] MEDS: MEROPENEM 500 MG VIAL IVP SCH ×2 (16:27→23:57)
[2017-09-16] MEDS: INSULIN HUMULIN R 100 UNIT/ML 3ML SQ SCH ×2 (16:30→20:33)
[2017-09-16] MEDS: POLYETHYLENE GLYCOL 3350 17 GM POWD.PACK PO SCH (20:32)
[2017-09-17 04:00] VITALS: BP 125/75
[2017-09-17] MEDS: ACETAMINOPHEN-CODEINE 300/30MG TAB PO PRN ×3 (05:03→22:34)
[2017-09-17 05:13] LABS: HEMATOCRIT 32.9 % (36-48); MEAN CORPUSCULAR HEMOGLOBIN 31.8 pg (27.0-33.0); MEAN CORPUSCULAR HGB CONC 35.8 g/dL (32.0-36.0); MEAN CORPUSCULAR VOLUME 88.8 fL (79-99); PLATELET COUNT (AUTO) 379 K/uL (130-400); RED CELL DISTRIBUTION WIDTH 12.8 % (11.0-15.5); WHITE BLOOD COUNT (AUTO) 9.2 K/uL (4.8-10.8)
[2017-09-17 05:19] LABS: CREATININE 0.7 mg/dL (0.5-1.5); POTASSIUM 3.7 mmol/L (3.5-5.1)
[2017-09-17] MEDS: INSULIN HUMULIN R 100 UNIT/ML 3ML SQ SCH ×4 (05:39→20:39)
[2017-09-17 08:00] VITALS: BP 119/78
[2017-09-17] MEDS: METFORMIN HCL 850 MG TABLET PO SCH ×2 (08:00→16:02)
[2017-09-17] MEDS ORDERED: DIATR MEGLU/DIATRIZOATE SODIUM 30 ML BOTTLE ONE (08:36)
[2017-09-17] MEDS: MEROPENEM 500 MG VIAL IVP SCH ×2 (08:49→16:01)
[2017-09-17] MEDS: ENOXAPARIN SODIUM 40 MG/0.4 ML SYRINGE SQ SCH (08:50)
[2017-09-17] MEDS: DOCUSATE SODIUM 100 MG CAP PO SCH ×3 (09:00→22:34)
[2017-09-17] MEDS: LOSARTAN 50 MG TABLET PO SCH (09:00)
[2017-09-17] MEDS: CADEXOMER IODINE 40 GM GEL TP SCH (09:10)
[2017-09-17 12:00] VITALS: BP 131/80
[2017-09-17 17:00] VITALS: BP 104/66
[2017-09-17 20:00] VITALS: BP 107/68
[2017-09-17] MEDS: POLYETHYLENE GLYCOL 3350 17 GM POWD.PACK PO SCH (22:35)
[2017-09-17] MEDS: KETOROLAC TROMETHAMINE 15MG/ML IV PRN (22:37)
[2017-09-17 23:49] VITALS: BP 100/59
[2017-09-18] MEDS: MEROPENEM 500 MG VIAL IVP SCH ×3 (00:22→16:49)
[2017-09-18 04:10] VITALS: BP 115/72
[2017-09-18 05:42] LABS: CREATININE 0.7 mg/dL (0.5-1.5); POTASSIUM 3.6 mmol/L (3.5-5.1)
[2017-09-18 05:45] LABS: HEMATOCRIT 33.3 % (36-48); MEAN CORPUSCULAR HEMOGLOBIN 30.8 pg (27.0-33.0); MEAN CORPUSCULAR HGB CONC 34.9 g/dL (32.0-36.0); MEAN CORPUSCULAR VOLUME 88.2 fL (79-99); PLATELET COUNT (AUTO) 423 K/uL (130-400); RED BLOOD CELL COUNT(AUTO) 3.78 MIL/uL (4.00-5.50); RED CELL DISTRIBUTION WIDTH 12.9 % (11.0-15.5); WHITE BLOOD COUNT (AUTO) 7.2 K/uL (4.8-10.8)
[2017-09-18] MEDS: KETOROLAC TROMETHAMINE 15MG/ML IV PRN ×2 (06:04→16:49)
[2017-09-18] MEDS: POTASSIUM CHLORIDE 20 MEQ ERTAB PO PRN ×2 (06:07→08:40)
[2017-09-18] MEDS: ACETAMINOPHEN-CODEINE 300/30MG TAB PO PRN ×2 (06:07→16:49)
[2017-09-18] MEDS: INSULIN HUMULIN R 100 UNIT/ML 3ML SQ SCH ×4 (06:08→20:28)
[2017-09-18 07:59] VITALS: BP 134/79
[2017-09-18] MEDS: METFORMIN HCL 850 MG TABLET PO SCH ×2 (08:40→16:49)
[2017-09-18] MEDS: DOCUSATE SODIUM 100 MG CAP PO SCH ×2 (08:40→20:43)
[2017-09-18] MEDS: LOSARTAN 50 MG TABLET PO SCH (08:40)
[2017-09-18] MEDS: CADEXOMER IODINE 40 GM GEL TP SCH (08:41)
[2017-09-18] MEDS: ENOXAPARIN SODIUM 40 MG/0.4 ML SYRINGE SQ SCH (08:53)
[2017-09-18] MEDS ORDERED: SULF1TAB42 PO (10:23)
[2017-09-18] MEDS ORDERED: CIPR-278 PO (10:26)
[2017-09-18] MEDS ORDERED: KETOROLAC TROMETHAMINE 15MG/ML IV PRN (10:30)
[2017-09-18 12:02] VITALS: BP 100/61
[2017-09-18 16:00] VITALS: BP 139/77
[2017-09-18] MEDS: PREGABALIN 25 MG CAP PO SCH ×2 (17:49→20:32)
[2017-09-18 20:00] VITALS: BP 102/59
[2017-09-18] MEDS: POLYETHYLENE GLYCOL 3350 17 GM POWD.PACK PO SCH (20:43)
[2017-09-18] MEDS: SULFAMETHOX-TMP DS 800/160 TAB PO SCH (20:43)
[2017-09-18] MEDS ORDERED: PREGABALIN 25 MG CAP PO SCH (21:00)
[2017-09-18 23:58] VITALS: BP 105/66
[2017-09-19] MEDS: MEROPENEM 500 MG VIAL IVP SCH ×3 (00:23→16:42)
[2017-09-19 04:00] VITALS: BP 138/80
[2017-09-19] MEDS: KETOROLAC TROMETHAMINE 15MG/ML IV PRN (04:25)
[2017-09-19] MEDS: MORPHINE SULFATE 4 MG/1ML SYG IVP PRN (05:00)
[2017-09-19] MEDS: INSULIN HUMULIN R 100 UNIT/ML 3ML SQ SCH ×3 (06:05→16:30)
[2017-09-19 07:56] VITALS: BP 116/75
[2017-09-19] MEDS: PREGABALIN 25 MG CAP PO SCH (08:46)
[2017-09-19] MEDS: DOCUSATE SODIUM 100 MG CAP PO SCH (08:46)
[2017-09-19] MEDS: LOSARTAN 50 MG TABLET PO SCH (08:46)
[2017-09-19] MEDS: ENOXAPARIN SODIUM 40 MG/0.4 ML SYRINGE SQ SCH (08:47)
[2017-09-19] MEDS: METFORMIN HCL 850 MG TABLET PO SCH ×2 (09:01→16:57)
[2017-09-19] MEDS: SULFAMETHOX-TMP DS 800/160 TAB PO SCH (09:01)
[2017-09-19 10:50] VITALS: BP 111/70
[2017-09-19] MEDS: ACETAMINOPHEN-CODEINE 300/30MG TAB PO PRN (13:37)
[2017-09-19 15:41] VITALS: BP 137/77
[2017-09-19] MEDS: CADEXOMER IODINE 40 GM GEL TP SCH (16:57)
== END 2017-09-19 19:50 | disposition home health service (06) | DRG 863 ==
LOC: EDH 16:44 → OBSVTOIN 23:02 → EDHIP 23:02 → 4CH 09-15 14:29
PROVIDERS: ADMIT Student in an Organized Health Care Education/Training Program; ATTEND Student in an Organized Health Care Education/Training Program
DX: T81.4XXA Infection following a procedure, initial encounter (principal); B96.5 Pseudomonas (aeruginosa) (mallei) (pseudomallei) as the cause of diseases classified elsewhere; B95.61 Methicillin susceptible Staphylococcus aureus infection as the cause of diseases classified elsewhere; E11.9 Type 2 diabetes mellitus without complications; E66.9 Obesity, unspecified; N39.0 Urinary tract infection, site not specified; E78.5 Hyperlipidemia, unspecified; I10 Essential (primary) hypertension; Z16.12 Extended spectrum beta lactamase (ESBL) resistance; Y83.8 Other surgical procedures as the cause of abnormal reaction of the patient, or of later complication, without mention of misadventure at the time of the procedure; Y92.89 Other specified places as the place of occurrence of the external cause; Z79.84 Long term (current) use of oral hypoglycemic drugs; Z79.899 Other long term (current) drug therapy; Z90.49 Acquired absence of other specified parts of digestive tract
CPT/HCPCS: 36415; 74176; 74177; 80048; 80053; 81001; 82948; 85025; 85027; 87070; 87076; 87077; 87088; 87186; 93971; A4218; J1650; J1885; J2185; J2270; J2543; J3370; J7030; Q9963; Q9967